=== PATIENT | male | born 1990 | race Caucasian/White ===

== ENCOUNTER 2019-09-04 07:41 | Outpatient (RCR) | payer OTHER, SELFPAY | END 2019-09-27 23:59 | disposition home or self-care (01) | LOC: SPT 07:41 | PROVIDERS: Family Provider Family Medicine; PCP Family Medicine; Referring Provider Orthopaedic Surgery Sports Medicine; Visit Provider Orthopaedic Surgery Sports Medicine | DX: M25.562 Pain in left knee (principal) | CPT/HCPCS: 97110; 97161 ==

== ENCOUNTER 2020-11-06 11:11 | Emergency (ER) | payer OTHER, SELFPAY ==
[2020-11-06 11:19] VITALS: BP 144/89; PULSE 92; RESP 16; O2SAT 97; BMI 31.5
--- NOTE | 2020-11-06 11:20 | XR_ITS ---
WS: [id number] Right hand, 3 views, 11/06/2020 Clinical Data: trauma Comparison: None. Findings: No new fractures or dislocations are seen. There is soft tissue swelling over the dorsum of the hand. The joint spaces are normal There is an old fracture of the right fifth metacarpal. XR/XR hand RT min 3V* [id number] Impression: Negative for new fractures of the right hand.
[2020-11-06 11:22] VITALS: PULSE 92; RESP 18; TEMP 37; O2SAT 99; BMI 24.4
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
[2020-11-06 11:25] VITALS: BP 144/89; PULSE 93; RESP 16; O2SAT 99
[2020-11-06] MEDS: cefTRIAXone 1,000 MG in sodium chloride 0.9% (plus) 50 ML 100 MG IV (11:39)
[2020-11-06] MEDS: tetanus-dipt-pertussis 0.5 mL SDV IM (11:42)
[2020-11-06 12:27] LABS: Basophils % 0.3 %; Eosinophils # 0.2 10^3/uL (0.0-0.8); Hematocrit 43.6 % (42.0-52.0); Hemoglobin 14.2 g/dL (11.7-16.6); Lymphocytes # 1.3 10^3/uL (0.8-4.8); Lymphocytes % 8.4 %; Mean Corpuscular HGB Conc 32.6 g/dL (30.0-36.0); Mean Corpuscular Hemoglobin 29.2 pg (28.0-34.0); Mean Corpuscular Volume 89.5 fL (80-94); Monocytes # 1.4 10^3/uL (0.2-0.9); Monocytes % 8.6 %; Neutrophils # 12.93 10^3/uL (1.8-7.7); Neutrophils % 81.3 %; Nucleated Red Blood Cells % 0 %; Platelet Count 185 10^3/cmm (130-400); Red Blood Count 4.87 10^6/uL (4.1-5.3); Red Cell Distribution Width 12.6 % (12.1-15.1); White Blood Count 15.9 10^3/uL (4.0-10.0)
[2020-11-06 12:43] VITALS: BP 123/77; PULSE 84; RESP 16; O2SAT 98
== END 2020-11-06 12:44 | disposition home or self-care (01) ==
PROVIDERS: Emergency Provider Nurse Practitioner Family; PCP Family Medicine
DX: L03.113 Cellulitis of right upper limb (principal); Z23 Encounter for immunization
CPT/HCPCS: 73130; 85025; 90715; 96365; 99283; J0696

== ENCOUNTER 2021-11-10 06:24 | Emergency (ER) | payer BC, SELFPAY ==
[2021-11-10 06:27] VITALS: BP 151/94; PULSE 97; RESP 18; TEMP 36.2; O2SAT 96; BMI 32.5
[2021-11-10 06:34] LABS: Basophils % 0.4 %; Eosinophils # 0.4 10^3/uL (0.0-0.8); Eosinophils % 4.2 %; Hematocrit 45.6 % (42.0-52.0); Hemoglobin 15.1 g/dL (11.7-16.6); Lymphocytes # 4.2 10^3/uL (0.8-4.8); Lymphocytes % 41.6 %; Mean Corpuscular HGB Conc 33.1 g/dL (30.0-36.0); Mean Corpuscular Hemoglobin 29.4 pg (28.0-34.0); Mean Corpuscular Volume 88.7 fl (80-94); Mean Platelet Volume 10.5 fL (7.4-10.4); Monocytes % 9.6 %; Nucleated Red Blood Cells % 0 %; Platelet Count 205 10^3/cmm (130-400); Red Blood Count 5.14 10^6/uL (4.1-5.3); Red Cell Distribution Width 12.3 % (12.1-15.1)
[2021-11-10 06:39] VITALS: RESP 18; O2SAT 97
[2021-11-10] MEDS: morphine 4 mg/mL SDV 1 mL IVP (06:39)
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
[2021-11-10 06:55] LABS: Alanine Aminotransferase 22 U/L (0-41); Albumin Level 4.9 g/dL (3.5-5.2); Alkaline Phosphatase 63 IU/L (40-130); Anion Gap 15.9 (5-19); Aspartate Amino Transferase 16 U/L (0-40); Blood Urea Nitrogen 18 mg/dL (6-20); Calcium 9.3 mg/dL (8.5-10.5); Carbon Dioxide 24 mmol/L (22-29); Chloride 99 mmol/L (98-107); Creatinine Clr Calc Pharmacy 150.1747; Globulin 2.4 g/dL (1.3-4.6); Glomerular Filtration Rate 97.8 mL/min (90-130); Glucose 103 mg/dL (65-115); Osmolality Calculated 282 mOsm/kg (285-295); Potassium 3.9 mmol/L (3.5-5.1); Sodium 135 mmol/L (136-145); Total Bilirubin 0.3 mg/dL (0.15-1.2); Total Protein 7.3 g/dL (6.6-8.7)
[2021-11-10 07:03] VITALS: BP 151/94; PULSE 82; RESP 19; O2SAT 96
[2021-11-10 07:11] LABS: Add Urine Microscopic? NO; Charge for UA Resulting for Rev
[2021-11-10 07:14] LABS: Bilirubin Urine Neg (Negative); Blood Urine Neg (Negative); Glucose Urine UA Norm (Normal); Ketones Urine Negative (Negative); Leukocyte Esterase Urine Negative (Negative); Nitrate Urine Negative (Negative); Protein Urine Neg (Negative); Specific Gravity, Urine 1.025 (1.005-1.030); Urine Appearance Clear (CLEAR); Urine Color Yellow (Yellow); Urobilinogen Urine Norm (Negative); pH Urine 5 (5-7)
[2021-11-10] MEDS: iohexol 300 mg/mL 100 mL Btl IV (07:15)
[2021-11-10 08:04] VITALS: BP 151/93; PULSE 79; RESP 18; O2SAT 96
== END 2021-11-10 08:05 | disposition home or self-care (01) ==
PROVIDERS: Emergency Provider Family Medicine; PCP Family Medicine
DX: S40.012A Contusion of left shoulder, initial encounter (principal); V09.20XA Pedestrian injured in traffic accident involving unspecified motor vehicles, initial encounter; Y99.0 Civilian activity done for income or pay
CPT/HCPCS: 71260; 74177; 80053; 81003; 85025; 96374; 99284; J2270; Q9967